=== PATIENT | male | born 1980 | race Native Hawaiian/Other Pacific Islander ===

== ENCOUNTER 2025-08-24 10:48 | Outpatient (CLI) | payer BC | END 2025-08-24 23:59 | disposition home or self-care (01) | LOC: WOU 10:48 | PROVIDERS: ATTEND Student in an Organized Health Care Education/Training Program | DX: L90.5 Scar conditions and fibrosis of skin (principal); Z87.828 Personal history of other (healed) physical injury and trauma; I10 Essential (primary) hypertension | CPT/HCPCS: G0463 ==